=== PATIENT | female | born 2005 | race Hispanic/Latino ===

== ENCOUNTER 2023-10-11 14:51 | Inpatient (IN) | payer BC, OTHER ==
[2023-10-11] MEDS: Lactated Ringer's 1,000 ML IV SCH (15:45)
[2023-10-11 16:08] VITALS: BMI 42.5
[2023-10-11] MEDS ORDERED: fentaNYL 50 mcg/mL 1 mL Vial SLOW IVP PRN (16:50)
[2023-10-11] MEDS ORDERED: Carboprost 250 MCG/ML AMP IM PRN (16:50)
[2023-10-11] MEDS ORDERED: Promethazine HCl 25 MG/ML VIAL IM PRN (16:50)
[2023-10-11] MEDS ORDERED: Methylergonovine 0.2 MG/ML VIAL IM PRN (16:50)
[2023-10-11] MEDS ORDERED: Tranexamic Acid 1,000 MG/10 ML VIAL IVP PRN (16:50)
[2023-10-11] MEDS ORDERED: Diphenoxylate HCl/Atropine Tablet PO PRN (16:50)
[2023-10-11] MEDS ORDERED: Misoprostol 200 MCG TAB PR PRN (16:50)
[2023-10-11] MEDS ORDERED: Ondansetron PF 4 MG/2 ML Vial IVP PRN (16:50)
[2023-10-11] MEDS ORDERED: HYDROcodone/Acetaminophen 5/325 mg Tablet PO PRN (16:50)
[2023-10-11] MEDS ORDERED: Lidocaine 1% (PF) 30 ML VIAL SC PRN (16:50)
[2023-10-11] MEDS ORDERED: Ibuprofen 800 MG TAB PO PRN (16:50)
[2023-10-11] MEDS ORDERED: Oxytocin 30 units/NS 500 ML 500 ML IV SCH ×3 (17:00)
[2023-10-11] MEDS: Misoprostol 100 MCG TAB PO SCH (17:07)
[2023-10-11 17:26] LABS: Hematocrit 36.6 % (34.9-44.5); Hemoglobin 12.5 g/dL (12.0-15.5); Mean Corpuscular HGB CONC 34.2 g/dL (32.0-36.0); Mean Corpuscular Hemoglobin 29.6 pg (27.0-33.0); Mean Corpuscular Volume 86.7 fL (81.6-98.3); Mean Platelet Volume 13.3 fL (7.4-10.4); Platelet Count 192 10x3/uL (150-450); RBC Distribution Width 14.1 % (11.5-14.5); Red Blood Cell (RBC) Count 4.22 10x6/uL (3.90-5.03); White Blood Cell (WBC) Count 12.2 10x3/uL (3.5-10.5)
[2023-10-11 17:30] LABS: Creatinine, Urine 32.23 mg/dL (47-110)
[2023-10-11 17:37] LABS: ALT (SGPT) 12 U/L (8-55); AST (SGOT) 18 U/L (5-34); Albumin 2.8 g/dL (3.5-5.0); Alkaline Phosphatase 167 U/L (40-100); Anion Gap 14 mmol/L (10-20); BUN (Urea Nitrogen) 10 mg/dL (7.0-18.7); Bilirubin, Total 0.5 mg/dL (0.2-1.2); Calc. Creatinine Clearance 241 mL/min (70-130); Calcium 9.3 mg/dL (7.8-10.44); Carbon Dioxide 21 mmol/L (22-29); Chloride 104 mmol/L (98-107); Estimated GFR 130; Globulin 3.3 g/dL (2.4-3.5); Glucose 78 mg/dL (70-105); Potassium 4.1 mmol/L (3.5-5.1); Protein, Total 6.1 g/dL (6.0-8.3); Sodium 135 mmol/L (136-145)
[2023-10-11 17:49] LABS: Hep B Surf Ag - L&D Non-Reactive S/CO (NonReactive)
[2023-10-11 17:50] LABS: Syphilis Antibody Nonreactive (Nonreactive); Syphilis Antibody Index 0.07 S/CO (<1.00 Non-Reactive)
[2023-10-11] MEDS: hydrALAZINE 20 MG/ML VIAL SLOW IVP PRN ×2 (19:56→20:52)
[2023-10-11] MEDS: Magnesium Sulfate 20 gm/500 ml 20 GM/500 ML BAG IVPB SCH (20:19)
[2023-10-11] MEDS ORDERED: Magnesium Sulfate 20 gm/500 ml 4 GM/100 ML BAG IVPB SCH (20:30)
[2023-10-11] MEDS ORDERED: hydrALAZINE 20 MG/ML VIAL SLOW IVP PRN (20:30)
[2023-10-11] MEDS ORDERED: Calcium Gluc 4.6 MEQ/10 ML (100 MG/ML) SLOW IVP PRN (20:30)
[2023-10-11] MEDS ORDERED: Lorazepam 2 MG/ML VIAL SLOW IVP PRN (20:30)
[2023-10-11] MEDS: Labetalol HCl 100 MG TAB PO SCH (21:41)
[2023-10-11] MEDS: hydrALAZINE 20 MG/ML VIAL SLOW IVP SCH (22:01)
[2023-10-11] MEDS: Acetaminophen 500 MG TAB PO PRN (23:44)
[2023-10-12] MEDS: Labetalol HCl 100 MG/20 ML VIAL SLOW IVP PRN ×2 (00:08→00:39)
[2023-10-12] MEDS: Labetalol HCl 100 MG/20 ML VIAL SLOW IVP SCH (01:25)
[2023-10-12] MEDS ORDERED: fentaNYL 50 mcg/mL 1 mL Vial SLOW IVP PRN ×2 (02:53→15:00)
[2023-10-12] MEDS ORDERED: Meperidine HCl/PF 25 MG (1 mL) VIAL SLOW IVP PRN (02:53)
[2023-10-12] MEDS ORDERED: Ondansetron PF 4 MG/2 ML Vial IVP PRN ×2 (02:53→05:08)
[2023-10-12] MEDS ORDERED: HYDROmorphone 0.5 MG/0.5 ML SYRINGE SLOW IVP PRN (02:53)
[2023-10-12] MEDS ORDERED: Naloxone HCl 0.4 mg/ml Vial IVP PRN ×2 (02:53)
[2023-10-12] MEDS ORDERED: Naloxone HCl 0.4 mg/ml Vial IV PRN (02:53)
[2023-10-12] MEDS ORDERED: diphenhydrAMINE 50 MG/ML VIAL IVP PRN (02:53)
[2023-10-12] MEDS ORDERED: Moisturizing Cream (Eucerin) 113 GM JAR TOP PRN (02:53)
[2023-10-12] MEDS ORDERED: Promethazine HCl 25 MG/ML VIAL IM PRN (02:53)
[2023-10-12] MEDS ORDERED: Communication Order-Pharmacy FS SCH (03:00)
[2023-10-12] MEDS: Magnesium Sulfate 20 gm/500 ml 20 GM/500 ML BAG ONE (04:02)
[2023-10-12] MEDS ORDERED: Bisacodyl 10 MG SUPP PR PRN (05:08)
[2023-10-12] MEDS ORDERED: Labetalol HCl 100 MG/20 ML VIAL SLOW IVP PRN ×2 (05:08)
[2023-10-12] MEDS ORDERED: Lorazepam 2 MG/ML VIAL SLOW IVP PRN (05:08)
[2023-10-12] MEDS ORDERED: diphenhydrAMINE 25 MG CAP PO PRN (05:08)
[2023-10-12] MEDS ORDERED: hydrALAZINE 20 MG/ML VIAL SLOW IVP PRN ×2 (05:08)
[2023-10-12] MEDS ORDERED: Calcium Gluc 4.6 MEQ/10 ML (100 MG/ML) SLOW IVP PRN (05:08)
[2023-10-12] MEDS ORDERED: Lanolin Ointment 7 GM TUBE TOP PRN (05:08)
[2023-10-12] MEDS: Labetalol HCl 100 MG TAB PO SCH ×2 (05:21→23:01)
[2023-10-12] MEDS: Ondansetron PF 4 MG/2 ML Vial IVP PRN (05:38)
[2023-10-12] MEDS: Promethazine HCl 25 MG/ML VIAL IM PRN (07:33)
[2023-10-12] MEDS ORDERED: Ketorolac Tromethamine 30 MG (1 mL) VIAL IVP PRN (08:00)
[2023-10-12] MEDS: Labetalol HCl 200 MG TAB PO SCH (08:03)
[2023-10-12] MEDS: Ketorolac Tromethamine 30 MG (1 mL) VIAL IVP SCH (11:07)
[2023-10-12] MEDS: Magnesium Sulfate 20 gm/500 ml 20 GM/500 ML BAG IVPB SCH (13:50)
[2023-10-12 15:00] LABS: #Basophils 0.02 10x3/uL (0.0-0.2); #Monocytes 0.83 10x3/uL (0.0-1.1); #Neutrophils 13.87 10x3/uL (1.5-8.4); %Basophils 0.1 % (0.0-2.0); %Lymphocytes 10.1 % (18.0-47.0); %Neutrophils 84.2 % (40.0-75.0); Hemoglobin 12.4 g/dL (12.0-15.5); Mean Corpuscular HGB CONC 34.4 g/dL (32.0-36.0); Mean Corpuscular Hemoglobin 30.3 pg (27.0-33.0); Mean Platelet Volume 12.5 fL (7.4-10.4); Platelet Count 195 10x3/uL (150-450); RBC Distribution Width 14.1 % (11.5-14.5); Red Blood Cell (RBC) Count 4.09 10x6/uL (3.90-5.03); White Blood Cell (WBC) Count 16.5 10x3/uL (3.5-10.5)
[2023-10-12] MEDS ORDERED: HYDROcodone/Acetaminophen 5/325 mg Tablet PO PRN (15:00)
[2023-10-12 15:13] LABS: ALT (SGPT) 9 U/L (8-55); AST (SGOT) 22 U/L (5-34); Albumin 2.5 g/dL (3.5-5.0); Alkaline Phosphatase 140 U/L (40-100); Anion Gap 11 mmol/L (10-20); BUN (Urea Nitrogen) 9 mg/dL (7.0-18.7); Bilirubin, Total 0.6 mg/dL (0.2-1.2); Calc. Creatinine Clearance 214 mL/min (70-130); Calcium 8.2 mg/dL (7.8-10.44); Carbon Dioxide 26 mmol/L (22-29); Chloride 98 mmol/L (98-107); Estimated GFR 123; Globulin 3.6 g/dL (2.4-3.5); Glucose 95 mg/dL (70-105); Potassium 4.3 mmol/L (3.5-5.1); Protein, Total 6.1 g/dL (6.0-8.3); Sodium 131 mmol/L (136-145)
[2023-10-12 15:15] LABS: Critical Call Chemistry NUR.SBF @1515
[2023-10-13 03:39] LABS: Hematocrit 30.1 % (34.9-44.5); Hemoglobin 10.6 g/dL (12.0-15.5); Mean Corpuscular HGB CONC 35.2 g/dL (32.0-36.0); Mean Corpuscular Hemoglobin 30.7 pg (27.0-33.0); Mean Corpuscular Volume 87.2 fL (81.6-98.3); Mean Platelet Volume 12.2 fL (7.4-10.4); Platelet Count 150 10x3/uL (150-450); RBC Distribution Width 14.5 % (11.5-14.5); Red Blood Cell (RBC) Count 3.45 10x6/uL (3.90-5.03); White Blood Cell (WBC) Count 9.3 10x3/uL (3.5-10.5)
[2023-10-13] MEDS: Ferrous Sulfate 325 MG TAB PO SCH (06:35)
[2023-10-13] MEDS: Docusate 100 MG CAP PO SCH (06:35)
[2023-10-13] MEDS: Prenatal Vitamin 1 TAB PO SCH (06:36)
[2023-10-13] MEDS: Ibuprofen 800 MG TAB PO SCH (06:44)
[2023-10-13] MEDS: HYDROcodone/Acetaminophen 5/325 mg Tablet PO PRN ×2 (08:28→11:41)
[2023-10-13] MEDS ORDERED: Ibuprofen 800 MG TAB PO PRN (14:00)
[2023-10-13] MEDS: Simethicone Chewable 80 MG TAB PO PRN (14:13)
[2023-10-14] MEDS: NIFEdipine XL 30 MG ER.TAB PO SCH (12:47)
[2023-10-15] MEDS: CEFAZOLIN 2 GM VIAL ONE (07:09)
[2023-10-15] MEDS: Labetalol HCl 100 MG/20 ML VIAL ONE (07:09)
[2023-10-15] MEDS: Oxytocin 10 UNITS/ML VIAL ONE ×2 (07:10)
[2023-10-15] MEDS: Boostrix 0.5 ML (Tdap) VIAL (>/=7 yrs of age) IM ONE (07:10)
[2023-10-15] MEDS: PHENYLEPHRINE-NS 100 MCG/ML 10 ML SYRINGE ONE (07:10)
[2023-10-15] MEDS: Morphine PF 10 MG/10 ML VIAL ONE (07:10)
[2023-10-15] MEDS: Ketorolac Tromethamine 30 MG (1 mL) VIAL ONE (07:10)
[2023-10-15] MEDS: Dexamethasone 4 mg/ml Vial ONE (07:10)
[2023-10-15] MEDS: Ondansetron PF 4 MG/2 ML Vial ONE ×2 (07:10)
[2023-10-15] MEDS: NIFEdipine XL 30 MG ER.TAB PO SCH (08:12)
[2023-10-15 11:01] VITALS: BP 137/73; TEMP 98.2
== END 2023-10-15 14:15 | disposition home or self-care (01) | DRG 788 ==
LOC: CSHLD 14:51 → CSHPED 10-13 03:50
PROVIDERS: ADMIT Family Medicine; ATTEND Family Medicine
PROC: 3E0P7VZ Introduction of Hormone into Female Reproductive, Via Natural or Artificial Opening (ICD-10-PCS; 2023-10-11)
PROC: 10D00Z1 Extraction of Products of Conception, Low, Open Approach (ICD-10-PCS; principal; 2023-10-12)
DX: O14.14 Severe pre-eclampsia complicating childbirth (principal); Z3A.38 38 weeks gestation of pregnancy; Z37.0 Single live birth; R51.9 Headache, unspecified; O99.413 Diseases of the circulatory system complicating pregnancy, third trimester
CPT/HCPCS: 36415; 36416; 51702; 80053; 82570; 83735; 84156; 85025; 85027; 86780; 86850; 86900; 86901; 87340; 88307; C1889; J0360; J1100; J1885; J2274; J2405; J2550; J2590; J3475; J7120